=== PATIENT | male | born 1985 | race Hispanic/Latino ===

== ENCOUNTER 2021-07-27 20:20 | Emergency (ER) | payer SELFPAY ==
[~2021-07-27] VITALS: Ht 167.6 cm; Wt 75.0 kg
[2021-07-28 02:10] VITALS: BP 127/68
== END 2021-07-28 02:10 | disposition home or self-care (01) | DRG 156 ==
LOC: ED 20:20
DX: J33.9 Nasal polyp, unspecified (principal)

== ENCOUNTER 2022-04-06 21:26 | Emergency (ER) | payer SELFPAY ==
[~2022-04-06] VITALS: Ht 167.6 cm; Wt 87.0 kg
[2022-04-06 21:40] VITALS: BP 132/82
[2022-04-06] MEDS ORDERED: TRAMADOL HCL50 MG PO (21:49)
[2022-04-06] MEDS ORDERED: AMOXICILLIN500 MG PO (22:00)
== END 2022-04-06 21:48 | disposition home or self-care (01) | DRG 159 ==
LOC: ED 21:26
DX: K04.7 Periapical abscess without sinus (principal); K02.9 Dental caries, unspecified

== ENCOUNTER 2022-04-07 02:41 | Emergency (ER) | payer SELFPAY ==
[~2022-04-07] VITALS: Ht 167.6 cm; Wt 87.0 kg
[~2022-04-07 02:41] MED LIST: AMOXICILLIN500 MG PO; TRAMADOL HCL50 MG PO
[2022-04-07 03:10] VITALS: BP 140/83
== END 2022-04-07 03:15 | disposition home or self-care (01) | DRG 159 ==
LOC: ED 02:41
DX: K02.9 Dental caries, unspecified (principal); K04.7 Periapical abscess without sinus